=== PATIENT | male | born 1990 | race Caucasian/White ===

== ENCOUNTER 2022-07-22 19:59 | Emergency (ER) | payer BC, SELFPAY ==
[2022-07-22 20:00] VITALS: BP 114/60; PULSE 69; RESP 15; TEMP 36.6; O2SAT 100; BMI 21.1
--- NOTE | 2022-07-22 21:06 | EDS_ITS ---
HPI History of Present Illness Chief Complaint: Other, Pain/Inj Narrative Narrative: 32-year-old male presenting with left lower rib pain. Onset was 4 days ago. He initially thought it was due to tripping 2 weeks ago. He states he stubbed his toe and twisted but he did not have pain directly after this. 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 He states he is tried ibuprofen at home without relief. He states he has tried stretching as well. He has not tried ice or heat. He is not short of breath. No constipation or diarrhea. No history of kidney stones. No urinary complaints. No fever, chills. PFSH PFSH Home Medications cyclobenzaprine 10 mg tablet 10 mg PO TID #14 tabs 07/22/22 [Rx Last Taken Unknown] naproxen 500 mg tablet (Naprosyn) 500 mg PO BID PRN pain #20 tabs 07/22/22 [Rx Last Taken Unknown] Allergy/AdvReac Type Severity Reaction Status Date / Time No Known Allergies Allergy Verified 07/22/22 20:02 Social History Smoking Status: Current every day smoker tobacco type: cigarettes ROS ROS ED Constitutional Constitutional ED: Denies chills Eyes Eyes: Denies change in vision ENT ENT ED: Denies rhinorrhea or sore throat Cardiovascular Cardiovascular: Reports other Details: Left lower rib pain ; Denies palpitations Respiratory/Chest Respiratory/Chest: Denies cough or dyspnea Gastrointestinal Gastrointestinal: Denies abdominal pain or constipation Genitourinary Genitourinary ED: Denies dysuria or hematuria Musculoskeletal Musculoskeletal: Denies arthralgias Integumentary Denies abscess Neurologic Neurologic: Denies headache(s) or paresthesias Psychiatric Psychiatric: Denies anxiety or depression EXAM Physical Exam Const Vital Signs: 07/22/22 20:00 07/22/22 20:15 Temperature 97.8 F Temperature Source Temporal Pulse Rate 69 Respiratory Rate 15 Respiratory Pattern Normal Blood Pressure 114/60 Blood Pressure Mean 78 Pulse Ox 100 Oxygen Delivery Method Room Air Positive well nourished General Appearance ED: NAD; Negative for pallor HEENT Reports moist mucous membranes Eyes PERRL and EOMs intact bilaterally Chest Wall Chest Narrative: Tenderness palpation left lower ribs in the midaxillary line. No ecchymosis, bruising, swelling. Equal symmetric breath sounds or chest wall rise. Resp normal respiratory effort and clear to auscultation bilaterally Cardio regular rate and regular rhythm GI normal to inspection, nondistended, normoactive bowel sounds Back/Spine no CVA tenderness Neuro oriented x3 and CN's II-XII intact bilaterally Sensorium / Orientation: alert and orientation impaired Motor Exam: strength 5/5 throughout Psych mental status grossly normal Skin no rashes or lesions noted and no wounds General Skin Exam: Negative for jaundice or pallor MDM MDM MDM Narrative Medical decision making narrative: Negative forPatient given a shot of Toradol and a lidocaine patch. X-rays of the left ribs were obtained with a PA chest and this is acute findings on my interpretation. Radiologist agree. Patient counseled this is likely a muscle strain. He is given cyclobenzaprine and not present home. He is counseled on stretching and alternating ice and heat. Patient stable for discharge. Impression: 1. Muscle strain Lab Data Attestation: I reviewed the patient's lab results. Radiography Diagnostic Testing: Clinical Impression(s) from Imaging Studies Ribs w/Chest X-Ray 07/22/22 21:25 IMPRESSION: Negative chest and left ribs series. Electronically Signed: Tremayne Sharpe MD at 21:40 EDT Reading Location ID and State: [facility] / [place] , Service support , Discharge Plan Triage Chief Complaint: Other, Pain/Inj ED Provider: Amarjit Norris Dx/Rx/DC Orders Instructions: ED Back Spasm, No Trauma Prescriptions: New cyclobenzaprine 10 mg tablet 10 mg PO TID Qty: 14 0RF naproxen [Naprosyn] 500 mg tablet 500 mg PO BID PRN (Reason: pain) Qty: 20 0RF Disposition Disposition: Home, Self Care
[2022-07-22] MEDS: Ketorolac 15 MG/ML Vial IM (21:13)
[2022-07-22] MEDS: Lidocaine 5% Patch 1 PATCH TOPICAL (21:13)
--- NOTE | 2022-07-22 21:25 | RAD_ITS ---
EXAM: XR LEFT RIBS AND AP CHEST, 3 OR MORE VIEWS CLINICAL INDICATION: left rib pain TECHNIQUE: Frontal and oblique views of the left ribs and frontal view of the chest. This report was created using [employer] report Beisen technology. COMPARISON: None. FINDINGS: LUNGS AND PLEURAL SPACES: Unremarkable. No consolidation or edema. No pneumothorax. No effusion. HEART: Unremarkable. Cardiac silhouette not enlarged. MEDIASTINUM: Central airways and mediastinal contour are unremarkable. BONES/JOINTS: Unremarkable. No evidence of displaced rib fractures. RAD/Ribs Uni Min 3V w/PA Chest IMPRESSION: Negative chest and left ribs series. Electronically Signed: Tremayne Sharpe MD at 21:40 EDT ,
[2022-07-22 22:37] VITALS: PULSE 77; RESP 18; O2SAT 99
== END 2022-07-22 22:37 | disposition home or self-care (01) ==
PROVIDERS: Emergency Provider Student in an Organized Health Care Education/Training Program; Visit Provider Student in an Organized Health Care Education/Training Program
DX: R07.81 Pleurodynia (principal); F17.210 Nicotine dependence, cigarettes, uncomplicated
CPT/HCPCS: 71101; 96372; 99283

== ENCOUNTER 2024-07-31 16:35 | Emergency (ER) | payer OTHER, SELFPAY ==
[2024-07-31 16:36] VITALS: BP 130/64; PULSE 105; RESP 16; TEMP 36.1; O2SAT 100; BMI 20.5
--- NOTE | 2024-07-31 19:45 | EX.ED.VIS.EY ---
HPI History of Present Illness Chief Complaint: Eye Problem Narrative Narrative: 34-year-old male who denies significant past medical history presents with injury to his left upper eyelid that he sustained a few hours ago. He states that he was bending over to play with his dog, and his dog jumped up. His dog has a rather large head, and his forehead hit him in the left upper eyelid causing small laceration. Patient states his tetanus immunization is current, approximately 3 years ago. He states he saw stars and may have blacked out for a brief second. He denies other injury. He presents for evaluation of his left upper eyelid laceration. He denies any loss of vision, no neck pain or other symptoms. PFSH PFSH Home Medications ?Medication ?Instructions ?Recorded ?Last Taken ?Type cyclobenzaprine 10 mg tablet 10 mg PO TID #14 tabs 07/22/22 Unknown Rx naproxen 500 mg tablet (Naprosyn) 500 mg PO BID PRN pain #20 tabs 07/22/22 Unknown Rx Allergy/AdvReac Type Severity Reaction Status Date / Time No Known Allergies Allergy Verified 07/31/24 16:38 Social History Smoking Status: Current every day smoker tobacco type: cigarettes ROS ROS ED ROS Narrative Review of systems, focused, positive for left upper eyelid laceration. History of closed head injury with brief loss of consciousness. No neck pain, no other injury. EXAM Physical Exam Narrative Exam Narrative: GCS 15. ABCs intact. Regular rate and rhythm. Lungs clear to auscultation bilaterally. Abdomen soft nontender with normal active bowel sounds. Inspection of the left upper eyelid shows an approximate 1 cm laceration that is very superficial, not through and through. PERRL, EOMI, no entrapment, no pain with movement. Const Vital Signs: 07/31/24 16:36 Temperature 97 F L Temperature Source Temporal Pulse Rate 105 H Respiratory Rate 16 Blood Pressure 130/64 H Blood Pressure Mean 86 Pulse Ox 100 Oxygen Delivery Method Room Air MDM MDM MDM Narrative Medical decision making narrative: I discussed types of closure with the patient including sutures versus skin adhesive. I do feel that this may be best to heal by secondary intent as the placement is on the left upper eyelid. He was told of the risk of infection and scarring and acknowledges an understanding. When I discussed injection of lidocaine to the area, patient declined sutures, and I do feel that skin adhesive would not be advantageous in this area as well. Through shared decision making, it was felt that it can heal by secondary intent. As it is more of a superficial laceration without active bleeding, he will take [id number] medications as needed and follow-up with primary care, and he was also referred to plastics. I feel he can be discharged safely home with follow-up. History & Record Review Discussion w/independent historian: Patient Discharge Plan Triage Chief Complaint: Eye Problem ED Provider: Paresh Hernandez Dx/Rx/DC Orders Clinical Impression: Eyelid laceration, left, Closed head injury Instructions: ED Head Injury (Adult), ED Laceration Superficial No Stitch Prescriptions: No Action cyclobenzaprine 10 mg tablet 10 mg PO TID Qty: 14 0RF naproxen [Naprosyn] 500 mg tablet 500 mg PO BID PRN (Reason: pain) Qty: 20 0RF Referrals: Ricky Garduno MD [Med Staff - Active Staff] - 1 Week if not improving Jose Barker MD [Med Staff - Active Staff] - As Needed Activity Restrictions/Additional Instructions: Return with fever, increased redness around the area, drainage of pus from your wound, swelling around her eye, new or worsening symptoms. Print Language: Venezuelan Disposition Disposition: Home, Self Care
[2024-07-31 20:21] VITALS: BP 132/70; PULSE 72; RESP 18; O2SAT 98
== END 2024-07-31 20:24 | disposition home or self-care (01) ==
LOC: ED 19:55
PROVIDERS: Emergency Provider Emergency Medicine; Visit Provider Emergency Medicine
DX: S01.112A Laceration without foreign body of left eyelid and periocular area, initial encounter (principal); F17.210 Nicotine dependence, cigarettes, uncomplicated; H57.9 Unspecified disorder of eye and adnexa; W55.89XA Other contact with other mammals, initial encounter
CPT/HCPCS: 99283

== ENCOUNTER 2025-03-22 16:17 | Emergency (ER) | payer OTHER, SELFPAY ==
[2025-03-22 16:18] VITALS: BP 111/76; PULSE 69; RESP 18; TEMP 36.7; O2SAT 92; BMI 23.3
--- NOTE | 2025-03-22 16:36 | CT_ITS ---
PROCEDURE: SPINE CERVICAL WITHOUT CONTRAS 03/22/2025 REASON FOR EXAM: TRAUMA TECHNIQUE: Cervical spine CT without contrast. Coronal and Sagittal reconstruction series were provided. One or more dose reduction techniques were used (e.g., Automated exposure control, adjustment of the mA and/or kV according to patient size, use of iterative reconstruction technique COMPARISON: None FINDINGS: Alignment: Straightening of the cervical lordosis. Atlantoaxial interval is maintained. Vertebrae: Vertebral body heights and disc spaces are maintained. No acute fracture or traumatic subluxation. No suspicious lytic or blastic lesion. Minimal endplate degenerative changes of the between C4 and C6. Otherwise, no degenerative changes of the cervical spine. Soft Tissues: Soft tissues of the neck are unremarkable. Diffuse ground-glass opacities and interlobular septal thickening within the imaged lung apices, more prominent on the left. Please refer to the same-day CT of the chest, abdomen and pelvis. CT/Spine Cervical without Contras IMPRESSION: No acute fracture or traumatic subluxation. Reading Location: [facility]
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
--- NOTE | 2025-03-22 16:36 | CT_ITS ---
PROCEDURE: BRAIN/HEAD WITHOUT CONTRAST 03/22/2025 REASON FOR EXAM: TRAUMA TECHNIQUE: Head CT without intravenous contrast. Coronal and Sagittal reconstruction series were provided. One or more dose reduction techniques were used (e.g., Automated exposure control, adjustment of the mA and/or kV according to patient size, use of iterative reconstruction technique. COMPARISON: None FINDINGS: * ACUTE: No acute infarct or hemorrhage. No mass effect or herniation. * BRAIN PARENCHYMA: Signal intensities are within normal limits for age. * VENTRICLES/EXTRA-AXIAL SPACES: No hydrocephalus or extra-axial fluid collections. * EXTRACRANIAL STRUCTURES: Visualized osseous structures are normal. Soft tissues are normal. CT/Brain/Head without Contrast IMPRESSION: NO ACUTE FINDINGS Reading Location: [facility]
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
[2025-03-22] MEDS: 0.9% Normal Saline (1000mL) 1,000 ML 1000 ML IV (16:47)
[2025-03-22] MEDS: Morphine 4 MG/ML Syringe IV (16:48)
[2025-03-22] MEDS: Ondansetron 4 MG/2 ML Vial IV (16:48)
[2025-03-22 16:56] LABS: Absolute Lymphocyte Count 1.42 X10^3/uL (0.83-4.51); Absolute Neutrophil Count 4.4 X10^3/uL (2.0-7.7); Basophil# 0.02 X10^3/uL; Basophil% 0.3 % (0-1); Eosinophil# 0.12 X10^3/uL; Eosinophils% 1.8 % (0-5); Hematocrit 35.6 % (40-54); Hemoglobin 12.5 g/dL (13.0-16.5); Lymphocyte # 1.42 X10^3/ul (0.83-4.51); Lymphocyte % 21.7 % (19-41); Mean Corp Hgb Conc 35.1 g/dL (32-36); Mean Corpuscular Hgb 31.6 pg (27.0-32.0); Mean Corpuscular Volume 89.9 fL (80-94); Mean Platelet Vol. 9.6 fl (6.2-12.0); Monocyte# 0.58 X10^3/uL; Monocyte% 8.9 % (0-10); NRBC Flagged by Analyzer 0 % (0-5); Neutrophil # 4.38 X10^3/uL (2.7-7.7); Neutrophil % 67.1 % (47-70); Platelet Count 173 K/mm3 (150-450); RBC Distribution Width CV 11.1 % (11.6-14.6); RBC Distribution Width SD 36.5 fl (35.1-43.9); Red Blood Count 3.96 M/mm3 (4.6-6.2); White Blood Count 6.5 K/mm3 (4.4-11.0)
--- NOTE | 2025-03-22 17:00 | RAD_ITS ---
PROCEDURE: SHOULDER MIN 2 VIEWS, 03/22/2025 REASON FOR EXAM: TRAUMA TECHNIQUE: AP views of the LEFT shoulder in internal and external rotation as well as a scapular Y-view were obtained. COMPARISON: None FINDINGS: Fracture/dislocation: Nondisplaced/minimally displaced comminuted fracture of the lateral 3rd of the LEFT clavicle. Joint space(s): Preserved. Soft tissues: Unremarkable. Foreign bodies: None visible. Bone mineralization: Unremarkable. Other: None. RAD/Shoulder min 2 Views IMPRESSION: Nondisplaced/minimally displaced comminuted fracture of the lateral 3rd of the LEFT clavicle. Reading Location: [id number]
--- NOTE | 2025-03-22 17:00 | RAD_ITS ---
PROCEDURE: ANKLE MIN 3 VIEWS, 03/22/2025 REASON FOR EXAM: TRAUMA TECHNIQUE: AP, lateral, and oblique views of the LEFT ankle were obtained COMPARISON: None FINDINGS: Fracture/dislocation: None visible. Joint space(s): Preserved. Soft tissues: Unremarkable. Foreign bodies: None visible. Bone mineralization: Unremarkable. Other: None. RAD/Ankle min 3 Views IMPRESSION: No visible acute displaced fracture. Reading Location: [id number]
[2025-03-22 17:14] LABS: ALB/GLOB Ratio 2.2 RATIO (0.9-2.4); AST(SGOT) 45 U/L (<=37); Alanine Aminotransfer ALT/SGPT 29 U/L (<=46); Alkaline Phosphatase 50 U/L (40-129); Anion Gap 9 (5-15); BUN 11 mg/dL (4-19); BUN/Creat Ratio 14.4 RATIO (10-20); Calcium,Total 8.5 mg/dL (7.6-11.0); Carbon Dioxide 23.4 mmol/L (21.0-32.0); Chloride 108 mmol/L (98-108); Creatinine, Serum 0.75 mg/dL (0.70-1.20); EST Glomerular Filtration Rate 119 (>60); Globulin 1.8 g/dL (2.2-4.2); Glucose 104 mg/dL (70-99); Lipase 118 U/L (13-75); Potassium 3.8 mmol/L (3.3-5.1); Protein, Total 5.8 g/dL (5.9-8.4); Sodium Level 140 mmol/L (133-145); Total Bilirubin 1.19 mg/dL (0.00-1.30)
[2025-03-22 17:21] VITALS: BP 96/60; PULSE 62; RESP 15; O2SAT 96
[2025-03-22 17:40] VITALS: BP 96/60; PULSE 60; RESP 15; O2SAT 96
[2025-03-22] MEDS: Ketorolac 30 MG/ML Syringe IV (17:49)
[2025-03-22 18:25] VITALS: BP 108/48; PULSE 59; RESP 13; O2SAT 99
[2025-03-22 19:37] VITALS: BP 100/62; PULSE 67; RESP 19; O2SAT 100
== END 2025-03-22 19:37 | disposition home or self-care (01) ==
PROVIDERS: Emergency Provider Emergency Medicine; Visit Provider Emergency Medicine
DX: S42.032A Displaced fracture of lateral end of left clavicle, initial encounter for closed fracture (principal); S06.0X9A Concussion with loss of consciousness of unspecified duration, initial encounter; F17.210 Nicotine dependence, cigarettes, uncomplicated; S00.83XA Contusion of other part of head, initial encounter; S90.512A Abrasion, left ankle, initial encounter; S90.511A Abrasion, right ankle, initial encounter; V20.49XA Other motorcycle driver injured in collision with pedestrian or animal in traffic accident, initial encounter
CPT/HCPCS: 70450; 71260; 72125; 73030; 73610; 74177; 80053; 83690; 85025; 96361; 96374; 96375; 99285; Q9967; A4216; J2405